=== PATIENT | male | born 1935 | race Caucasian/White ===

== ENCOUNTER → 2020-07-13 | Outpatient (CLI) | payer MEDICARE, OTHER ==
[~2020-07-13] MED LIST: ASCO500 PO; CARV25 PO; CHROMIUM400 MCG PO; CIPR500 PO; HYDACE5 PO; HYDCHL12.5 PO; LO-DOSE ASPIRIN81 MG PO; LOSA25 PO; OMEP20ER PO; ROSU10TA PO; SOMA250 MG PO; VALS80 PO; [UNRECOGNIZED DRUG - REMARK]
== END | disposition home or self-care (01) ==
LOC: PLD 09:29 → LAB SHORT 09:29
DX: D48.5 Neoplasm of uncertain behavior of skin (principal)
CPT/HCPCS: 88305

== ENCOUNTER → 2021-02-02 | Outpatient (CLI) | payer MEDICARE, OTHER | LOC: LAB SHORT 11:32 → LAB 11:32 | DX: D48.5 Neoplasm of uncertain behavior of skin (principal) | CPT/HCPCS: 88305 ==

== ENCOUNTER → 2021-02-24 | Outpatient (CLI) | payer MEDICARE, OTHER ==
[~2021-02-24] MED LIST changes: +Citrucel500 MG PO; +L-ARGININE500 MG PO; +SILD25T PO; +TESTOSTERONE60 GM TOP; +TRAM50 PO
== END | disposition home or self-care (01) ==
LOC: LAB SHORT 15:56 → LAB 15:56
DX: C44.319 Basal cell carcinoma of skin of other parts of face (principal); C44.41 Basal cell carcinoma of skin of scalp and neck
CPT/HCPCS: 88305

== ENCOUNTER → 2022-01-03 | Outpatient (CLI) | payer MEDICARE, OTHER | END | disposition home or self-care (01) | LOC: LAB 13:32 → PLD 13:32 → LAB SHORT 13:32 | DX: D04.62 Carcinoma in situ of skin of left upper limb, including shoulder (principal) | CPT/HCPCS: 88305 ==

== ENCOUNTER 2023-05-16 13:10 | Day surgery (SDC) | payer MEDICARE, OTHER ==
[~2023-05-16] VITALS: Ht 182.9 cm; Wt 109.2 kg
[2023-05-16] MEDS ORDERED: ALPR.25 PO (13:53)
[2023-05-16 14:57] VITALS: BP 147/81
--- NOTE | 2023-05-16 15:24 | NUR ---
05/16/23 1524 Devante Louise IV REMOVED INTACT. SITE WNL.
== END 2023-05-16 15:14 | disposition home or self-care (01) ==
LOC: ORSCSDS 13:10
PROVIDERS: Ophthalmology
PROC: 08RK3JZ Replacement of Left Lens with Synthetic Substitute, Percutaneous Approach (ICD-10-PCS; principal; 2023-05-16 14:30)
DX: H25.13 Age-related nuclear cataract, bilateral (principal); E78.00 Pure hypercholesterolemia, unspecified; F41.9 Anxiety disorder, unspecified; I25.10 Atherosclerotic heart disease of native coronary artery without angina pectoris; Z79.899 Other long term (current) drug therapy; Z85.01 Personal history of malignant neoplasm of esophagus
CPT/HCPCS: J2250; J3010; J3301; J7040; V2632

== ENCOUNTER 2023-05-30 12:04 | Day surgery (SDC) | payer MEDICARE, OTHER ==
[~2023-05-30] VITALS: Ht 182.9 cm; Wt 107.9 kg
[~2023-05-30 12:04] MED LIST changes: +ALPR.25 PO
--- NOTE | 2023-05-30 12:42 | NUR ---
05/30/23 1242 [address]te [address] 1230 PLEDGET AT 1232
[2023-05-30 14:03] VITALS: BP 142/84
== END 2023-05-30 14:25 | disposition home or self-care (01) ==
LOC: ORSCSDS 12:04
PROVIDERS: Ophthalmology
PROC: 08RJ3JZ Replacement of Right Lens with Synthetic Substitute, Percutaneous Approach (ICD-10-PCS; principal; 2023-05-30 13:30)
DX: H25.11 Age-related nuclear cataract, right eye (principal); Z96.1 Presence of intraocular lens; I10 Essential (primary) hypertension; I25.10 Atherosclerotic heart disease of native coronary artery without angina pectoris; Z87.891 Personal history of nicotine dependence; Z79.899 Other long term (current) drug therapy; K21.9 Gastro-esophageal reflux disease without esophagitis; Z85.89 Personal history of malignant neoplasm of other organs and systems
CPT/HCPCS: J2001; J2250; J3010; J3301; J7040; V2632

== ENCOUNTER 2023-08-20 22:07 | Emergency (ER) | payer MEDICARE, OTHER ==
[~2023-08-20] VITALS: Ht 182.9 cm; Wt 106.1 kg
[2023-08-20 22:48] LABS: BASOPHILS ABSOLUTE AUTO 0.04 K/mm3 (0.00-0.23); BASOPHILS PERCENT AUTO 1 % (0-2); EOSINOPHILS ABSOLUTE AUTO 0.16 K/mm3 (0.00-0.68); EOSINOPHILS PERCENT AUTO 3 % (0-6); Hematocrit 44.2 % (37.0-53.0); Hemoglobin 14.4 g/dL (13.5-17.5); IMMATURE GRAN ABSOLUTE AUTO 0.01 K/mm3 (0.00-0.10); IMMATURE GRAN PERCENT AUTO 0 % (0-1); LYMPHOCYTES ABSOLUTE AUTO 0.88 K/mm3 (0.84-5.20); LYMPHOCYTES PERCENT AUTO 18 % (21-46); MONOCYTES ABSOLUTE AUTO 0.49 K/mm3 (0.16-1.47); MONOCYTES PERCENT AUTO 10 % (4-13); Mean Corpuscular HGB 33.4 pg (26.0-34.0); Mean Corpuscular HGB Conc 32.6 g/dL (31.5-36.5); Mean Corpuscular Volume 103 fL (80-100); Mean Platelet Volume 9.5 fL (9.1-12.4); NEUTROPHILS PERCENT AUTO 67 % (41-73); Platelet Count 134 K/mm3 (150-400); RDW Coefficient Variation 13.4 % (11.7-14.2); RDW Standard Deviation 51.2 fL (35.1-46.3); Red Blood Cell Count 4.31 M/mm3 (4.30-5.90); White Blood Cell Count 4.78 K/mm3 (4.00-11.30)
[2023-08-20 23:11] LABS: Albumin, Blood 3.8 g/dL (3.4-5.0); Bilirubin, Total 0.4 mg/dL (0.1-1.0); Bun/Creatinine Ratio 25.3 (12.0-20.0); Calcium, Blood 8.4 mg/dL (8.5-10.1); Creatinine, Blood 0.91 mg/dL (0.60-1.20); Globulin, Blood 3.7 g/dL (2.2-4.0); Potassium, Blood 4.1 mmol/L (3.5-5.5); Total Protein, Blood 7.5 g/dL (6.4-8.2)
[2023-08-20] MEDS ORDERED: LOSA50 PO (23:22)
[2023-08-20] MEDS ORDERED: CYMBALTA30 M2 PO (23:22)
[2023-08-20] MEDS ORDERED: OMEP20ER PO (23:22)
[2023-08-21 01:00] VITALS: BP 156/90
== END 2023-08-21 01:34 | disposition home or self-care (01) ==
LOC: ER 22:07
PROVIDERS: Student in an Organized Health Care Education/Training Program
DX: R07.89 Other chest pain (principal); I10 Essential (primary) hypertension; Z88.1 Allergy status to other antibiotic agents; Z88.8 Allergy status to other drugs, medicaments and biological substances; Z79.899 Other long term (current) drug therapy; Z79.82 Long term (current) use of aspirin; Z87.891 Personal history of nicotine dependence
CPT/HCPCS: 80053; 84484; 85025; 93005; 93010; 99285-25

== ENCOUNTER 2024-02-08 11:59 | Day surgery (SDC) | payer MEDICARE, OTHER ==
[~2024-02-08] VITALS: Ht 182.9 cm; Wt 109.7 kg
[~2024-02-08 11:59] MED LIST changes: +CYMBALTA30 M2 PO; +LOSA50 PO; +Lactated Ringer's 1,000 ML IV ONE; +propofoL 50 ML IV ONE
[2024-02-08] MEDS ORDERED: MELA3 (13:04)
[2024-02-08] MEDS ORDERED: Lactated Ringer's 1,000 ML IV ONE (13:40)
[2024-02-08] MEDS ORDERED: Ondansetron HCl 2 MG / ML 2ML Vial ONE (15:00)
[2024-02-08] MEDS ORDERED: propofoL 50 ML IV ONE (15:00)
[2024-02-08 16:23] VITALS: BP 143/77
== END 2024-02-08 16:05 | disposition home or self-care (01) ==
LOC: ORSCSDS 11:59
PROVIDERS: Internal Medicine Gastroenterology
PROC: 0DBL8ZX Excision of Transverse Colon, Via Natural or Artificial Opening Endoscopic, Diagnostic (ICD-10-PCS; principal; 2024-02-08 13:15)
PROC: 0DBM8ZX Excision of Descending Colon, Via Natural or Artificial Opening Endoscopic, Diagnostic (ICD-10-PCS; principal; 2024-02-08 13:15)
PROC: 0DBK8ZX Excision of Ascending Colon, Via Natural or Artificial Opening Endoscopic, Diagnostic (ICD-10-PCS; principal; 2024-02-08 13:15)
DX: R19.5 Other fecal abnormalities (principal); R10.32 Left lower quadrant pain; Z86.010 Personal history of colon polyps; D12.3 Benign neoplasm of transverse colon; D12.2 Benign neoplasm of ascending colon; D12.4 Benign neoplasm of descending colon; K57.30 Diverticulosis of large intestine without perforation or abscess without bleeding; K64.8 Other hemorrhoids; I10 Essential (primary) hypertension; N40.0 Benign prostatic hyperplasia without lower urinary tract symptoms; Z85.828 Personal history of other malignant neoplasm of skin; Z85.21 Personal history of malignant neoplasm of larynx; Z79.899 Other long term (current) drug therapy
CPT/HCPCS: 88305; J2405; J2704; J7120

== ENCOUNTER 2024-04-29 11:50 | Emergency (ER) | payer MEDICARE, OTHER ==
[~2024-04-29] VITALS: Ht 182.9 cm; Wt 108.9 kg
[~2024-04-29 11:50] MED LIST changes: -Lactated Ringer's 1,000 ML IV ONE; +MELA3; -propofoL 50 ML IV ONE
[2024-04-29 12:53] LABS: BASOPHILS ABSOLUTE AUTO 0.04 K/mm3 (0.00-0.23); BASOPHILS PERCENT AUTO 1 % (0-2); EOSINOPHILS ABSOLUTE AUTO 0.14 K/mm3 (0.00-0.68); EOSINOPHILS PERCENT AUTO 2 % (0-6); Hemoglobin 13.1 g/dL (13.5-17.5); IMMATURE GRAN ABSOLUTE AUTO 0.02 K/mm3 (0.00-0.10); IMMATURE GRAN PERCENT AUTO 0 % (0-1); LYMPHOCYTES ABSOLUTE AUTO 0.69 K/mm3 (0.84-5.20); LYMPHOCYTES PERCENT AUTO 11 % (21-46); MONOCYTES ABSOLUTE AUTO 0.57 K/mm3 (0.16-1.47); MONOCYTES PERCENT AUTO 9 % (4-13); Mean Corpuscular HGB 32.7 pg (26.0-34.0); Mean Corpuscular HGB Conc 32.8 g/dL (31.5-36.5); Mean Corpuscular Volume 100 fL (80-100); Mean Platelet Volume 9.7 fL (9.1-12.4); NEUTROPHILS ABSOLUTE AUTO 4.78 K/mm3 (1.96-9.15); NEUTROPHILS PERCENT AUTO 77 % (41-73); Platelet Count 131 K/mm3 (150-400); RDW Coefficient Variation 13.2 % (11.7-14.2); RDW Standard Deviation 48.4 fL (35.1-46.3); Red Blood Cell Count 4.01 M/mm3 (4.30-5.90); White Blood Cell Count 6.24 K/mm3 (4.00-11.30)
[2024-04-29 13:12] LABS: Albumin, Blood 3.5 g/dL (3.4-5.0); Albumin/Globulin Ratio 1.1 (0.8-1.8); Bilirubin, Total 0.7 mg/dL (0.1-1.0); Bun/Creatinine Ratio 32.5 (12.0-20.0); Calcium, Blood 8.6 mg/dL (8.5-10.1); Creatinine, Blood 0.8 mg/dL (0.60-1.20); Globulin, Blood 3.2 g/dL (2.2-4.0); Potassium, Blood 4.3 mmol/L (3.5-5.5); Total Protein, Blood 6.7 g/dL (6.4-8.2)
[2024-04-29] MEDS ORDERED: Mag Hydrox/AL Hydrox/Simeth 30 ML UDC PO ONE (13:25)
[2024-04-29 16:30] VITALS: BP 180/88
[2024-04-29] MEDS ORDERED: Voltaren100 GM TOP (16:38)
== END 2024-04-29 16:45 | disposition home or self-care (01) ==
LOC: ER 11:50
PROVIDERS: Student in an Organized Health Care Education/Training Program
DX: R07.89 Other chest pain (principal); I10 Essential (primary) hypertension; Z87.891 Personal history of nicotine dependence; Z79.82 Long term (current) use of aspirin; Z79.899 Other long term (current) drug therapy; Z88.1 Allergy status to other antibiotic agents; Z88.8 Allergy status to other drugs, medicaments and biological substances
CPT/HCPCS: 71046; 71260; 80053; 84484; 85025; 85379; 93005; 93010; 99285-25; A9270; Q9967

== ENCOUNTER → 2024-12-09 | Outpatient (CLI) | payer MEDICARE, OTHER ==
[~2024-12-09] MED LIST changes: +Voltaren100 GM TOP
== END ==
LOC: LAB SHORT 18:40 → LAB 18:40
DX: N39.0 Urinary tract infection, site not specified (principal)
CPT/HCPCS: 87077; 87086; 87186

== ENCOUNTER → 2025-07-05 | Outpatient (CLI) | payer MEDICARE, OTHER ==
[2025-07-05 16:15] LABS: BASOPHILS ABSOLUTE AUTO 0.03 K/mm3 (0.00-0.23); BASOPHILS PERCENT AUTO 1 % (0-2); EOSINOPHILS ABSOLUTE AUTO 0.08 K/mm3 (0.00-0.68); EOSINOPHILS PERCENT AUTO 2 % (0-6); Hematocrit 39.6 % (37.0-53.0); Hemoglobin 13.1 g/dL (13.5-17.5); IMMATURE GRAN ABSOLUTE AUTO 0.02 K/mm3 (0.00-0.10); IMMATURE GRAN PERCENT AUTO 0 % (0-1); LYMPHOCYTES ABSOLUTE AUTO 0.79 K/mm3 (0.84-5.20); LYMPHOCYTES PERCENT AUTO 16 % (21-46); MONOCYTES ABSOLUTE AUTO 0.45 K/mm3 (0.16-1.47); MONOCYTES PERCENT AUTO 9 % (4-13); Mean Corpuscular HGB Conc 33.1 g/dL (31.5-36.5); Mean Corpuscular Volume 101 fL (80-100); NEUTROPHILS ABSOLUTE AUTO 3.66 K/mm3 (1.96-9.15); NEUTROPHILS PERCENT AUTO 73 % (41-73); NRBC ABSOLUTE 0.00 K/mm3 (0.00-0.02); NRBC Auto 0.0 /100 WBC (0.0-0.2); Platelet Count 130 K/mm3 (150-400); RDW Coefficient Variation 13.7 % (11.7-14.2); RDW Standard Deviation 50.8 fL (35.1-46.3)
[2025-07-05 16:25] LABS: Alanine Aminotransfer (ALT/SGP 21.0 U/L (12-78); Albumin, Blood 3.6 g/dL (3.4-5.0); Albumin/Globulin Ratio 1.2 (0.8-1.8); Anion Gap 13.0 mmol/L (3-11); Aspartate Aminotrans (AST/SGOT 14.0 U/L (12-37); Bilirubin, Total 0.6 mg/dL (0.1-1.0); Blood Urea Nitrogen 26.0 mg/dL (8-24); CO2, Blood 27.0 mmol/L (21-32); Calcium, Blood 9.1 mg/dL (8.5-10.1); Chloride, Blood 108.0 mmol/L (98-108); Creatinine, Blood 0.79 mg/dL (0.60-1.20); Globulin, Blood 3.1 g/dL (2.2-4.0); Glucose, Blood 103.0 mg/dL (70-99); Potassium, Blood 4.2 mmol/L (3.5-5.5); Sodium, Blood 144.0 mmol/L (136-145); Total Protein, Blood 6.7 g/dL (6.4-8.2)
== END ==
LOC: LAB 16:10 → LAB SHORT 16:10
PROVIDERS: Physician Assistant
DX: R60.9 Edema, unspecified (principal)
CPT/HCPCS: 80053; 83690; 85025; 85379

== ENCOUNTER → 2025-09-16 | Outpatient (CLI) | payer MEDICARE, OTHER | END | disposition home or self-care (01) | LOC: LAB 19:49 → LAB SHORT 19:49 | DX: R30.0 Dysuria (principal) | CPT/HCPCS: 87077; 87086; 87186 ==